=== PATIENT | female | born 1965 | race Hispanic/Latino ===

== ENCOUNTER 2019-10-01 18:59 | Emergency (ER) | payer BC ==
--- NOTE | 2019-10-01 19:05 | NUR ---
PER REGISTRATION "SHE WANTS TO GO TO AN URGENT CARE AND THOUGHT THIS WAS ONE" PT LEFT TO GO AT THIS TIME
== END 2019-10-01 19:05 | disposition short-term general hospital (02) ==
LOC: FSED 18:59
DX: R69 Illness, unspecified (principal)